=== PATIENT | female | born 1935 | race Asian ===

== ENCOUNTER 2016-09-10 10:10 | Outpatient (CLI) | payer MEDICARE, MEDICAID | END 2016-09-10 21:59 | disposition home or self-care (01) | LOC: MLB 10:10 | DX: Z51.81 Encounter for therapeutic drug level monitoring (principal); I48.91 Unspecified atrial fibrillation; I10 Essential (primary) hypertension; Z79.01 Long term (current) use of anticoagulants ==

== ENCOUNTER 2016-10-21 10:52 | Outpatient (CLI) | payer MEDICARE, MEDICAID ==
[2016-10-21 12:08] LABS: INR 1.3 (0.8-1.2); PROTHROMBIN TIME 12.3 secs (10.8-13.4)
== END 2016-10-21 17:13 | disposition home or self-care (01) ==
LOC: MLB 10:52
PROVIDERS: ATTEND Internal Medicine Geriatric Medicine
DX: Z51.81 Encounter for therapeutic drug level monitoring (principal); I48.91 Unspecified atrial fibrillation; Z79.01 Long term (current) use of anticoagulants
CPT/HCPCS: 36415; 85610

== ENCOUNTER 2017-01-25 14:42 | Outpatient (CLI) | payer MEDICARE, OTHER ==
[2017-01-25 17:24] LABS: BASOPHILS # (AUTO) 0.1 K/uL (0.00-0.22); BASOPHILS % (AUTO) 2.1 % (0.0-2.0); EOSINOPHILS # (AUTO) 0.3 K/uL (0-0.4); EOSINOPHILS % (AUTO) 4.1 % (0.0-4.0); HEMATOCRIT 44.2 % (36-48); HEMOGLOBIN 14.4 g/dL (12.0-16.0); LYMPHOCYTES # (AUTO) 1.2 K/uL (2.5-16.5); LYMPHOCYTES % (AUTO) 19.9 % (20.5-51.1); MEAN CORPUSCULAR HEMOGLOBIN 29 pg (27-31); MEAN CORPUSCULAR HGB CONC 33 g/dL (33-37); MEAN CORPUSCULAR VOLUME 91 fL (80-94); MONOCYTES # (AUTO) 0.5 K/uL (0.8-1.0); MONOCYTES % (AUTO) 8.9 % (1.7-9.3); PLATELET COUNT (AUTO) 293 K/uL (140-450); RED BLOOD CELL COUNT(AUTO) 4.87 MIL/uL (4.20-5.40); RED CELL DISTRIBUTION WIDTH 13.6 % (11.6-13.7); WHITE BLOOD COUNT (AUTO) 6.1 K/uL (4.8-10.8)
[2017-01-25 17:43] LABS: INR 1.4 (0.8-1.2)
[2017-01-25 17:47] LABS: ALANINE AMINOTRANSFERASE 18 U/L (14-59); ALBUMIN 3.7 g/dL (3.4-5.0); ALKALINE PHOSPHATASE 94 U/L (46-116); ANION GAP 9.5 (8-16); ASPARTATE AMINOTRANSFERASE 18 U/L (15-37); CALCIUM 8.7 mg/dL (8.5-10.1); CARBON DIOXIDE 28.2 mmol/L (21-32); CHLORIDE 106 mmol/L (98-107); CHOL/HDL RATIO 2.5 (1-4.5); CHOLESTEROL 173 mg/dL (<200); GLUCOSE 101 mg/dL (74-106); HDL CHOLESTEROL 69 mg/dL (40-60); LDL (CALC) 92 mg/dL (60-100); POTASSIUM 4.7 mmol/L (3.5-5.1); SODIUM SERUM 139 mmol/L (136-145); TOTAL BILIRUBIN 0.4 mg/dL (0.0-1.0); TOTAL PROTEIN, SERUM 8.1 g/dL (6.4-8.2); TRIGLYCERIDES 62 mg/dL (30-150); UREA NITROGEN, BLOOD 21 mg/dL (7-18)
[2017-01-26 06:36] LABS: T4 FREE (DIRECT) 1.37 ng/dL (0.82-1.77); VITAMIN D, 25-HYDROXY 30.7 ng/mL (30.0-100.0)
== END 2017-01-25 21:06 | disposition home or self-care (01) ==
LOC: MRD 14:42
PROVIDERS: ATTEND Internal Medicine Geriatric Medicine
PROC: BW41ZZZ Ultrasonography of Abdomen and Pelvis (ICD-10-PCS; principal; 2017-01-25)
DX: Z00.00 Encounter for general adult medical examination without abnormal findings (principal); N95.0 Postmenopausal bleeding; I11.9 Hypertensive heart disease without heart failure; I48.91 Unspecified atrial fibrillation
CPT/HCPCS: 36415; 76830; 80053; 82306; 84439; 84443; 85025; 85610